=== PATIENT | female | born 2000 | race American Indian/Alaskan Native ===

== ENCOUNTER 2021-01-05 13:14 | Outpatient (CLI) | payer MEDICAID ==
[2021-01-05 16:00] VITALS: BP 113/57
== END 2021-01-05 16:30 | disposition home or self-care (01) ==
LOC: TRG 13:14 → APU 13:31 → TRG 16:30
PROVIDERS: ATTEND Obstetrics & Gynecology
DX: Z34.93 Encounter for supervision of normal pregnancy, unspecified, third trimester (principal); Z3A.38 38 weeks gestation of pregnancy
CPT/HCPCS: 59025

== ENCOUNTER 2021-01-06 11:36 | Outpatient (CLI) | payer MEDICAID ==
[2021-01-06 12:01] VITALS: BP 130/60
== END 2021-01-06 13:04 | disposition home or self-care (01) ==
LOC: TRG 11:36 → APU 11:37 → TRG 13:04
PROVIDERS: ATTEND Obstetrics & Gynecology
DX: Z34.93 Encounter for supervision of normal pregnancy, unspecified, third trimester (principal); Z3A.39 39 weeks gestation of pregnancy
CPT/HCPCS: 59025

== ENCOUNTER 2021-01-06 15:30 | Inpatient (IN) | payer MEDICAID ==
[2021-01-06] MEDS ORDERED: OXYTOCIN 10 UNIT/1 ML INJ IM PRN (16:56)
[2021-01-06] MEDS ORDERED: AMPICILLIN/NS 2 GM/100 ML 2 GM/100 ML BAG IV ONE (16:56)
[2021-01-06] MEDS ORDERED: MINERAL OIL 30 ML ORAL LIQD PO PRN (16:56)
[2021-01-06] MEDS ORDERED: ePHEDrine SULFATE 50 MG/1 ML INJ IV PRN (16:56)
[2021-01-06] MEDS ORDERED: BUTORPHANOL 2 MG/1 ML INJ IV PRN ×2 (16:56)
[2021-01-06] MEDS ORDERED: NALOXONE 0.4 MG/1 ML INJ IV PRN (16:56)
[2021-01-06] MEDS ORDERED: miSOPROStol 200 MCG TAB PR PRN (16:56)
[2021-01-06] MEDS ORDERED: TERBUTALINE 1 MG/1 ML INJ SUB-Q PRN (16:56)
[2021-01-06] MEDS ORDERED: ONDANSETRON 4 MG/2 ML INJ IV PRN (16:56)
[2021-01-06] MEDS ORDERED: METHYLERGONOVINE MALEATE 0.2 MG/ML VIAL IM PRN (16:56)
[2021-01-06] MEDS ORDERED: fentaNYL 100 MCG/2 ML INJ IV PRN (16:56)
[2021-01-06] MEDS ORDERED: LIDOCAINE (2%) 20 MG/1 ML VIAL 20 ML MDV INFILTRATI ONE (16:56)
[2021-01-06] MEDS ORDERED: OXYTOCIN DRIP 30 UNITS/500 ML BAG IV SCH ×2 (17:00)
[2021-01-06 18:17] LABS: Hematocrit 35.9 % (30.3-42.9); Hemoglobin 12.2 gm/dl (10.1-14.3); Mean Corpuscular HGB Conc 34 % (30-34); Mean Corpuscular Volume 94 fl (79-97); Platelet Count 200 K/mm3 (140-440); Red Blood Count 3.82 M/mm3 (3.65-5.03)
[2021-01-06] MEDS: LACTATED RINGERS 1,000 ML IV SCH ×2 (18:33→23:32)
[2021-01-06] MEDS: AMPICILLIN/NS 1 GM/50 ML 1 GM/50 ML BAG IV SCH (22:00)
[2021-01-07] MEDS ORDERED: fentaNYL-BUPIV 2 MCG/ML-0.125% 200 MCG/100 ML BAG EPIDURAL ONE (00:33)
[2021-01-07] MEDS: LACTATED RINGERS 1,000 ML IV SCH ×2 (00:40→02:28)
--- NOTE | 2021-01-07 01:09 | Anesthesia Consultation ---
Anesthesia Consult and Med Hx Date of service: 01/07/21 - Airway Anesthetic Teeth Evaluation: Good ROM Head & Neck: Adequate Mental/Hyoid Distance: Adequate Mallampati Class: Class II Intubation Access Assessment: Probably Good - Pulmonary Exam CTA: Yes - Cardiac Exam Cardiac Exam: RRR - Pre-Operative Health Status ASA Pre-Surgery Classification: ASA2 Proposed Anesthetic Plan: Epidural - Pulmonary Hx Smoking: No Hx Asthma: No Hx Respiratory Symptoms: No SOB: No COPD: No Hx Pneumonia: No Hx Sleep Apnea: No - Cardiovascular System Hx Hypertension: No Hx Coronary Artery Disease: No Hx Heart Attack/AMI: No Hx Angina: No Hx Percutaneous Transluminal Coronary Angioplasty (PTCA): No Hx Cardia Arrhythmia: No Hx Pacemaker: No Hx Internal Defibrillator: No Hx Valvular Heart Disease: No Hx Heart Murmur: No Hx Peripheral Vascular Disease: No - Central Nervous System Hx Neuromuscular Disorder: No Hx Seizures: No CVA: No Hx Back Pain: No Hx Psychiatric Problems: No - Gastrointestinal Hx Ulcer: No Hx Gastroesophageal Reflux Disease: No - Endocrine Hx Renal Disease: No Hx End Stage Renal Disease: No Hx Cirrhosis: No Hx Liver Disease: No Hx Insulin Dependent Diabetes: No Hx Non-Insulin Dependent Diabetes: No Hx Thyroid Disease: No Hx Hypothyroidism: No Hx Hyperthyroidism: No - Hematic Hx Anemia: No Hx Sickle Cell Disease: No - Other Systems Hx Alcohol Use: No Hx Substance Use: No Hx Cancer: No Hx Obesity: Yes
[2021-01-07] MEDS ORDERED: ePHEDrine SULFATE 50 MG/1 ML INJ IV PRN (01:11)
[2021-01-07] MEDS ORDERED: NALOXONE 2 MG/2 ML INJ IV PRN (01:11)
--- NOTE | 2021-01-07 01:11 | Progress Note ---
Labor Epidural - Labor Epidural Start Time: 00:49 Stop Time: 01:00 Performed by:: ALICIA JEREZ Procedure: Patient is requesting a laboring epidural for laboring pain. Patient IDed, H&P reviewed, all questions and concerns were answered, and consent was signed. Timeout was performed at bedside. Patient in sitting position. Sterile prep and drape was performed. [3] ml of 1% lidocaine skin wheal at L[3]- L [4]. 18- gauge Tuohy epidural needle was advanced to loss of resistance with saline technique 7cm. Negative CSF negative blood. Epidural catheter advanced to [12] centimeters. [NEGATIVE] Aspiration [NEGATIVE] test dose. Sterile dressing applied. Patient tolerated procedure.
[2021-01-07] MEDS ORDERED: fentaNYL-BUPIV 2 MCG/ML-0.125% 200 MCG/100 ML BAG EPIDURAL SCH (02:00)
[2021-01-07] MEDS: AMPICILLIN/NS 1 GM/50 ML 1 GM/50 ML BAG IV SCH (02:27)
--- NOTE | 2021-01-07 06:00 | Procedure Note ---
OB Delivery Note - Delivery Date of Delivery: 01/07/21 Surgeon: PEREZ KWAN Estimated blood loss: 200cc - Vaginal Delivery presentation: vertex Delivery position: OA Intrapartum events: none Delivery induction: none Delivery augmentation: pitocin Delivery monitor: external FHT, external uterine Route of delivery: Delivery placenta: spontaneous Delivery cord: 3 umbilical vessels Episiotomy: none Delivery laceration: none Anesthesia: epidural Delivery comments: Viable female delivered over intact perineum a [id number] with no nuchal cord and apgars 8,9. Weight 7 pounds 2 ounces.Infant had spontaneous cry and was placed on maternal abdomen. Cord was clamped and cut when done pulsating. Placenta delivered spontaneously and intact with 3vc. No lacerations. Pt tolerated procedure well. - Infant A at 1 minute: 8 at 5 minutes: 9 Gender: Female
[2021-01-07] MEDS ORDERED: MAGNESIUM HYDROXIDE (MOM) ORAL LIQD UDC PO PRN (09:45)
[2021-01-07] MEDS ORDERED: ONDANSETRON 4 MG/2 ML INJ IV PRN (09:45)
[2021-01-07] MEDS ORDERED: PROMETHAZINE 25 MG TAB PO PRN (09:45)
[2021-01-07] MEDS ORDERED: WITCH HAZEL/ GLYCERIN PAD TP PRN (09:45)
[2021-01-07] MEDS ORDERED: PROMETHAZINE 25 MG RECT SUPP PR PRN (09:45)
[2021-01-07] MEDS ORDERED: LANOLIN/ZINC/DIMETHICONE (LANSINOH) 7 GM TP PRN (09:45)
[2021-01-07] MEDS ORDERED: diphenhydrAMINE 25 MG CAP PO PRN (09:45)
[2021-01-07] MEDS: DOCUSATE SODIUM 100 MG CAP PO SCH ×2 (11:30→23:40)
[2021-01-07] MEDS: IBUPROFEN 600 MG TAB PO SCH ×3 (11:30→23:47)
[2021-01-07] MEDS: PRENATAL VIT27-FE FUMARATE-FOLIC ACID VIT TAB PO SCH (11:30)
[2021-01-07] MEDS: HYDROcodone/ACETAMINOPHEN 5-325 MG TAB PO PRN (18:08)
[2021-01-07 18:49] LABS: Hematocrit 35.8 % (30.3-42.9)
[2021-01-08] MEDS: IBUPROFEN 600 MG TAB PO SCH ×5 (05:14→23:24)
[2021-01-08] MEDS: HYDROcodone/ACETAMINOPHEN 5-325 MG TAB PO PRN ×2 (08:08→21:47)
--- NOTE | 2021-01-08 08:11 | Post Anesthesia Evaluation ---
- Post Anesthesia Evaluation Patient Participated: Yes Airway Patent: Yes Stable Respiratory Function: Yes Nausea/Vomiting: No Temp > 96.8F: Yes Pain Manageable: Yes Adequeate Hydration: Yes Anesthesia Complications: No Block Receding Appropriately: Yes Patient on Ventilator: No
[2021-01-08] MEDS: DOCUSATE SODIUM 100 MG CAP PO SCH ×2 (10:50→21:42)
[2021-01-08] MEDS: PRENATAL VIT27-FE FUMARATE-FOLIC ACID VIT TAB PO SCH (10:50)
--- NOTE | 2021-01-08 22:22 | Progress Note ---
Assessment and Plan PPD 1 after . Doing well. pt states that she is still planning to give her child up for adoption. Plan for discharge in the am. Subjective - Subjective Date of service: 01/08/21 Patient reports: appetite normal, voiding normally, pain well controlled, ambulating normally : doing well (Baby being held for 48 hours) Objective - Vital Signs Latest vital signs: Vital Signs Temp Pulse Resp BP Pulse Ox 01/08/21 16:56 97.6 F 68 18 117/72 99 01/08/21 08:25 97.6 F 18 119/77 01/08/21 05:14 20 01/08/21 02:15 97.8 F 77 16 125/78 98 01/07/21 23:47 20 Intake and Output 01/08/21 01/08/21 01/08/21 06:59 14:59 22:59 Intake Total 720 Balance 720 Intake: Intake, Free Water 720 Other: # Voids Void 2 1 1 - Exam Breasts: Present: deferred Cardiovascular: Present: Regular rate, Normal S1, Normal S2 Lungs: Present: Clear to auscultation, Normal air movement Abdomen: Present: normal appearance, normal bowel sounds Extremities: Present: normal
[2021-01-09] MEDS: IBUPROFEN 600 MG TAB PO SCH (05:11)
[2021-01-09 08:14] VITALS: BP 127/75
--- NOTE | 2021-01-09 08:34 | Progress Note ---
Assessment and Plan - Patient Problems (1) (normal spontaneous vaginal delivery) Current Visit: Yes Status: Acute Plan to address problem: patient doing well Subjective - Subjective Date of service: 01/09/21 Interval history: patient without complaints Patient reports: appetite normal, voiding normally, pain well controlled [place]: doing well Objective - Vital Signs Latest vital signs: Vital Signs Temp Pulse Resp BP BP Pulse Ox 01/09/21 08:13 97.5 F L 65 18 127/75 99 01/08/21 23:15 97.4 F L 72 18 118/82 99 01/08/21 16:56 97.6 F 68 18 117/72 99 Intake and Output 01/08/21 01/09/21 01/09/21 22:59 06:59 14:59 Intake Total 360 480 Balance 360 480 Intake: Oral 360 480 Other: Total, Intake Amount 120 240 # Voids Void 1 1 - Exam Uterus: Present: normal, firm
--- NOTE | 2021-01-09 08:36 | Discharge Summary ---
Providers - Providers Date of Admission: 01/06/21 17:00 Date of discharge: 01/09/21 Attending physician: KYLE RUBIN 01/07/21 11:27 Consult to Case Management [CONS] Routine Services Needed at Discharge: Ticketing Clerk Notified:: No Additional Physician Instructions: Pt wants to use adoption services for baby. Primary care physician: KYLE RUBIN Hospitalization Reason for admission: active labor Delivery: Discharge diagnosis: IUP at term delivered Hospital course: patient admitted in labor. had . uncomplicated Condition at discharge: Good Disposition: DC-01 TO HOME OR SELFCARE - Discharge Diagnoses (1) (normal spontaneous vaginal delivery) Status: Acute Plan - Discharge Medications Prescriptions: Ibuprofen [Motrin] 800 mg PO Q8HR PRN #30 tablet PRN Reason: Pain , Severe (7-10) - Provider Discharge Summary Activity: no sex for 6 weeks, no heavy lifting 4 weeks, no strenuous exercise Diet: routine Instructions: routine Additional instructions: [] Smoking cessation referral if applicable(refer to patient education folder for contact #) [] Refer to [facility] Booklet Call your doctor immediately for: * Fever > 100.5 * Heavy vaginal bleeding ( >1 pad per hour) * Severe persistent headache * Shortness of breath * Reddened, hot, painful area to leg or breast * schedule visit in 4 week - Follow up plan
== END 2021-01-09 13:30 | disposition home or self-care (01) | DRG 775 ==
LOC: TRG 15:30 → APU 15:31 → TRG 16:56 → LD 17:00 → OB 01-07 10:26
PROVIDERS: ADMIT Obstetrics & Gynecology; ATTEND Obstetrics & Gynecology
PROC: 10E0XZZ Delivery of Products of Conception, External Approach (ICD-10-PCS; principal; 2021-01-07)
PROC: 3E0R3BZ Introduction of Anesthetic Agent into Spinal Canal, Percutaneous Approach (ICD-10-PCS; 2021-01-07)
PROC: 00HU33Z Insertion of Infusion Device into Spinal Canal, Percutaneous Approach (ICD-10-PCS; 2021-01-07)
DX: O80 Encounter for full-term uncomplicated delivery (principal); Z37.0 Single live birth; Z3A.39 39 weeks gestation of pregnancy; Z20.822 Contact with and (suspected) exposure to COVID-19
CPT/HCPCS: 36415; 59025; 85014; 85018; 85027; 86592; 86850; 86900; 86901; G0378; J0290; J2590; J7120; U0003